=== PATIENT | male | born 1945 | race Caucasian/White ===

== ENCOUNTER 2019-07-07 00:30 | Emergency (ER) | payer MEDICARE, BC ==
[2019-07-07] MEDS ORDERED: Diltiazem 25 MG/5 ML SDV IVPUSH ONE (01:03)
--- NOTE | 2019-07-07 01:05 | EDM.PDOC ---
ED HPI GENERAL MEDICAL PROBLEM - General Chief Complaint: General Stated Complaint: SOB Time Seen by Provider: 07/07/19 00:30 Source of Information: Reports: Patient History Limitations: Reports: No Limitations - History of Present Illness INITIAL COMMENTS - FREE TEXT/NARRATIVE: Pt is 74 year old male with PMH of Afib presents to emergency room with c/o shortness of breath for few weeks now. Pt claims that he used to feel chest pressure with shortness of breath when he woke up in the morning. It would last for few hours and gradually improve over the day. But tonight, about 1 hr prior to arrival, he started to feel short of breath with midsternal chest pressure. Also felt weak and sweaty. So he got up and drove to the emergency room.Rates his pressure and discomfort at 6-7/10. No nausea or vomiting. No chest pain. Pt's SPO2 was 88% on arrival and was started on o2 at 2 litres and had to be increased to 4 litres to bring his SPO2 to 92%. Onset: Today Onset Date: 07/06/19 Onset Time: 23:00 Location: Reports: Chest Quality: Reports: Pressure, Same as Previous Episode Severity: Mild Improves with: Reports: None Worsens with: Reports: None Associated Symptoms: Reports: Shortness of Breath. Denies: Confusion, Chest Pain, Cough, Diaphoresis, Fever/Chills, Headaches, Nausea/Vomiting, Rash, Seizure Chest Pain Score (Numeric/FACES): 4 - Related Data Allergies Allergy/AdvReac Type Severity Reaction Status Date / Time bee venom protein (honey bee) Allergy Cannot Verified 07/07/19 00:53 Remember Home Meds: Home Meds Aspirin 81 mg PO DAILY 07/07/19 [History] Levothyroxine Sodium [Levo-T] 50 mcg PO DAILY 07/07/19 [History] Metoprolol Succinate [Toprol XL 100mg] 100 mg PO DAILY 07/07/19 [History] dilTIAZem HCl [Diltiazem ER] 180 mg PO DAILY 07/07/19 [History] ED ROS GENERAL - Review of Systems Review Of Systems: See Below Constitutional: Reports: Diaphoresis. Denies: Fever, Malaise, Weakness, Night Sweats HEENT: Denies: Rhinitis, Throat Pain Respiratory: Reports: Shortness of Breath. Denies: Wheezing, Pleuritic Chest Pain, Cough, Sputum Cardiovascular: Reports: Chest Pain. Denies: Lightheadedness Endocrine: Denies: Fatigue, Polydypsia GI/Abdominal: Denies: Abdominal Pain, Anorexia, Nausea, Vomiting : Denies: Dysuria, Frequency Musculoskeletal: Denies: Joint Pain, Joint Swelling Skin: Denies: Bruising, Pruritis, Rash Neurological: Denies: Confusion, Dizziness, Headache, Numbness, Tingling Psychiatric: Denies: Agitation, Anxiety, Confusion, Cravings, Depression ED EXAM, GENERAL - Physical Exam Exam: See Below Exam Limited By: No Limitations General Appearance: Alert, WD/WN, Other (slightly short of breath, cold and clamy with sweating) Eye Exam: Bilateral Eye: EOMI, PERRL Ears: Normal External Exam, Normal Canal, Hearing Grossly Normal, Normal TMs Ear Exam: Bilateral Ear: Auricle Normal, Canal Normal, TM normal Nose: Normal Inspection, Normal Mucosa, No Blood Throat/Mouth: Normal Inspection, Normal Lips, Normal Teeth, Normal Gums, Normal Oropharynx, Normal Voice, No Airway Compromise Head: Atraumatic, Normocephalic Neck: Normal Inspection, Supple, Non-Tender, Full Range of Motion Respiratory/Chest: Normal Breath Sounds, No Accessory Muscle Use, Chest Non- Tender, Crackles (coarse b/l basal crackles) Cardiovascular: Normal Peripheral Pulses, Regular Rate, Rhythm, No Edema, No Gallop, No JVD, No Murmur, No Rub GI/Abdominal: Normal Bowel Sounds, Soft, Non-Tender, No Organomegaly, No Distention, No Abnormal Bruit, No Mass Extremities: Normal Inspection, Normal Range of Motion, Non-Tender, Normal Capillary Refill Neurological: Alert, Oriented, CN II-XII Intact, Normal Cognition, Normal Gait, Normal Reflexes, No Motor/Sensory Deficits EKG INTERPRETATION EKG Date: 07/07/19 Rhythm: A-Fib [place]: Normal QRS: Normal ST-T: Normal QT: Normal EKG Interpretation Comments: Poor R wave progression in lead 1,2 and 3 Course - Vital Signs Text/Narrative:: Pt's EKG showed heart rate of 170s. His EKG shows Afib with RVR. He is probably in heart failure with his symptoms. It has progressively got worse over the past 2 wks.On clinical exam he does have coarse crackles in the base. Also there is pedal edema around the ankle. Pt did receive Cardizem 15mg IV stat, his heart rate did drop into 100-110s. Also he did receive lasix 20mg IV. His shortness of breath resolved and his Chest pressure was down to 4/10. Patient is feeling better. LAb work ordered. Chest x-ray does show pulmonary congestion. Pt's labs are back, His CBC appears normal. AMP is stable. His troponin is elevated at 0.258 and his BNP is 1352.It does appear like Afib with RVR with Non -STEMI. Pt was started on heparin bolus 4000 units and a drip of 1000 units per hour.Also aspirin 324mg orally. I did contact Dr. Del Valle, hospitalist senior microsoft consultant at [facility] and discuss patient with him. He did agree to accept patient for transfer to [facility]. Also I have started him on cardizem drip at 2.5mg per hour to keep his heart rate under 110/minute. Also his home meds list has been available and update on the chart. Pt is hemodynamically stable. He will be transferred to [facility] by ambulance. Pt is hemodynamically stable and chest pain free at the time of transfer. Further care per Dr. Del Valle. Last Recorded V/S: Last Vital Signs Temp Pulse 159 H 07/07/19 03:19 Resp 16 07/07/19 03:19 BP 121/94 H 07/07/19 03:19 Pulse Ox 95 07/07/19 03:19 - Orders/Labs/Meds Orders: Active Orders 24 hr Category Date Time Status EKG Documentation Completion [RC] ASDIRECTED Care 07/07/19 01:02 Active Chest 1V Frontal [CR] Stat Exams 07/07/19 01:00 Taken Diltiazem [Cardizem] 100 mg Med 07/07/19 02:30 Ordered Sodium Chloride 0.9% [Normal Saline] 100 ml IV TITRATE Heparin Sodium/D5W [Heparin 25,000 Units in D5W 500 ML] Med 07/07/19 02:45 Active 25,000 units in 500 ml IV TITRATE EKG 12 Lead [EK] Routine Ther 07/07/19 00:38 Ordered Medication Orders Diltiazem HCl 100 mg/ Sodium (Chloride) 100 mls @ 2.5 mls/hr IV TITRATE THONG; Protocol Last Admin: 07/07/19 03:13 Dose: 2.5 mg/hr, 2.5 mls/hr Heparin Sodium/Dextrose (Heparin 25,000 Units In D5w 500 Ml) 25,000 units in 500 mls @ 22.861 mls/hr IV TITRATE THONG; Protocol Last Admin: 07/07/19 02:51 Dose: 12 units/kg/hr, 22.861 mls/hr Labs: Laboratory Tests 07/07/19 07/07/19 07/07/19 Range/Units 01:00 01:00 01:00 WBC 4.2 (4.0-11.0) K/uL RBC 5.78 (4.50-6.50) M/uL Hgb 18.7 H* (13.0-18.0) g/dL Hct 53.7 (40.0-54.0) % MCV 93 (76-96) fL MCH 32.4 H (27.0-32.0) pg MCHC 34.8 (31.0-35.0) g/dL RDW 13.3 (11.0-16.0) % Plt Count 214 (150-400) K/uL MPV 10.5 H (6.0-10.0) fL Neut % (Auto) 67.2 (45.0-70.0) % Lymph % (Auto) 22.0 (20.0-40.0) % [place] % (Auto) 6.2 (3.0-10.0) % Eos % (Auto) 4.1 (1.0-5.0) % Baso % (Auto) 0.5 (0.0-0.5) % Neut # (Auto) 2.82 (2.00-7.50) K/uL Lymph # (Auto) 0.92 L (1.50-4.00) K/uL [place] # (Auto) 0.26 (0.20-0.80) K/uL Eos # (Auto) 0.17 (0.04-0.40) K/uL Baso # (Auto) 0.02 (0.02-0.10) K/uL PT 16.5 H (9.0-11.5) sec INR 1.7 (1.0-3.5) APTT 29.6 (24.4-33.2) SECONDS Sodium (136-145) mmol/L Potassium (3.5-5.1) mmol/L Chloride (98-107) mmol/L Carbon Dioxide (21.0-32.0) mmol/L Anion Gap (5.0-15.0) mmol/L BUN (8-26) mg/dL Creatinine (0.70-1.30) mg/dL Est Cr Clr Drug Dosing mL/min Estimated GFR (MDRD) (>60) MLS/MIN BUN/Creatinine Ratio (6-25) Glucose (74-100) mg/dL Calcium (8.5-10.1) mg/dL Total Bilirubin (0.0-1.0) mg/dL AST (15-37) U/L ALT (12-78) U/L Alkaline Phosphatase (46-116) U/L Troponin I (0.000-0.060) ng/mL B-Natriuretic Peptide 1352 H (0-125) pg/mL Total Protein (6.4-8.2) g/dL Albumin (3.4-5.0) g/dL Globulin (2.2-4.2) g/dL Albumin/Globulin Ratio (0.8-2.0) 07/07/19 Range/Units 01:00 WBC (4.0-11.0) K/uL RBC (4.50-6.50) M/uL Hgb (13.0-18.0) g/dL Hct (40.0-54.0) % MCV (76-96) fL MCH (27.0-32.0) pg MCHC (31.0-35.0) g/dL RDW (11.0-16.0) % Plt Count (150-400) K/uL MPV (6.0-10.0) fL Neut % (Auto) (45.0-70.0) % Lymph % (Auto) (20.0-40.0) % [place] % (Auto) (3.0-10.0) % Eos % (Auto) (1.0-5.0) % Baso % (Auto) (0.0-0.5) % Neut # (Auto) (2.00-7.50) K/uL Lymph # (Auto) (1.50-4.00) K/uL [place] # (Auto) (0.20-0.80) K/uL Eos # (Auto) (0.04-0.40) K/uL Baso # (Auto) (0.02-0.10) K/uL PT (9.0-11.5) sec INR (1.0-3.5) APTT (24.4-33.2) SECONDS Sodium 146 H (136-145) mmol/L Potassium 4.0 (3.5-5.1) mmol/L Chloride 107 (98-107) mmol/L Carbon Dioxide 24.4 (21.0-32.0) mmol/L Anion Gap 18.6 H (5.0-15.0) mmol/L BUN 31 H (8-26) mg/dL Creatinine 1.32 H (0.70-1.30) mg/dL Est Cr Clr Drug Dosing 53.08 mL/min Estimated GFR (MDRD) 53 L (>60) MLS/MIN BUN/Creatinine Ratio 23.5 (6-25) Glucose 156 H (74-100) mg/dL Calcium 9.9 (8.5-10.1) mg/dL Total Bilirubin 1.0 (0.0-1.0) mg/dL AST 48 H (15-37) U/L ALT 36 (12-78) U/L Alkaline Phosphatase 79 (46-116) U/L Troponin I 0.259 H* (0.000-0.060) ng/mL B-Natriuretic Peptide (0-125) pg/mL Total Protein 7.7 (6.4-8.2) g/dL Albumin 3.8 (3.4-5.0) g/dL Globulin 3.9 (2.2-4.2) g/dL Albumin/Globulin Ratio 1.0 (0.8-2.0) Meds: Medications Generic Name Dose Route Start Last Admin Trade Name Freq PRN Reason Stop Dose Admin Diltiazem HCl 100 mg/ Sodium 100 mls @ 2.5 mls/hr 07/07/19 02:30 07/07/19 03: 13 Chloride IV 2.5 mg/hr TITRATE THONG 2.5 mls/hr Administration Protocol 2.5 MG/HR Heparin Sodium/Dextrose 25,000 units in 500 mls @ 22.861 mls/hr 07/07/19 02: 45 07/07/19 02:51 Heparin 25,000 Units In D5w 500 Ml IV 12 units/kg/hr TITRATE THONG 22.861 mls/hr Administration Protocol 12 UNITS/KG/HR Discontinued Medications Generic Name Dose Route Start Last Admin Trade Name Freq PRN Reason Stop Dose Admin Aspirin 324 mg 07/07/19 02:17 07/07/19 02:25 Aspirin PO 07/07/19 02:18 324 mg ONETIME ONE Administration Diltiazem HCl 15 mg 07/07/19 01:03 07/07/19 00:57 Diltiazem IVPUSH 07/07/19 01:04 15 mg ONETIME ONE Administration Furosemide 20 mg 07/07/19 01:28 07/07/19 01:25 Lasix IVPUSH 07/07/19 01:29 20 mg ONETIME ONE Administration Heparin Sodium (Porcine) 4,000 units 07/07/19 02:18 07/07/19 02:49 Heparin Sodium IVPUSH 07/07/19 02:19 4,000 units ONETIME ONE Administration Departure - Departure Time of Disposition: 04:00 Disposition: DC/Tfer to Acute Hospital 02 Condition: Fair Clinical Impression: CHF, Congestive heart failure, Atrial fibrillation with RVR, Non-STEMI (non-ST elevated myocardial infarction) - Discharge Information *PRESCRIPTION DRUG MONITORING PROGRAM REVIEWED*: Not Applicable *COPY OF PRESCRIPTION DRUG MONITORING REPORT IN PATIENT ANAHI: Not Applicable Referrals: PCP,None [Primary Care Provider] - Forms: ED Department Discharge - Problem List & Annotations (1) CHF, Congestive heart failure SNOMED Code(s): 77213318 Code(s): I50.9 - HEART FAILURE, UNSPECIFIED Status: Acute Current Visit: No (2) Atrial fibrillation with RVR SNOMED Code(s): 010072419338995 Code(s): I48.91 - UNSPECIFIED ATRIAL FIBRILLATION Status: Acute Current Visit: Yes (3) Non-STEMI (non-ST elevated myocardial infarction) SNOMED Code(s): 82493815 Code(s): I21.4 - NON-ST ELEVATION (NSTEMI) MYOCARDIAL INFARCTION Status: Acute Current Visit: Yes - Problem List Review Problem List Initiated/Reviewed/Updated: Yes - My Orders Last 24 Hours: My Active Orders 07/07/19 00:38 EKG 12 Lead [EK] Routine 07/07/19 01:00 Chest 1V Frontal [CR] Stat 07/07/19 01:02 EKG Documentation Completion [RC] ASDIRECTED 07/07/19 02:30 Diltiazem [Cardizem] 100 mg Sodium Chloride 0.9% [Normal Saline] 100 ml IV TITRATE 07/07/19 02:45 Heparin Sodium/D5W [Heparin 25,000 Units in D5W 500 ML] 25,000 units in 500 ml IV TITRATE - Assessment/Plan Last 24 Hours: My Active Orders 07/07/19 00:38 EKG 12 Lead [EK] Routine 07/07/19 01:00 Chest 1V Frontal [CR] Stat 07/07/19 01:02 EKG Documentation Completion [RC] ASDIRECTED 07/07/19 02:30 Diltiazem [Cardizem] 100 mg Sodium Chloride 0.9% [Normal Saline] 100 ml IV TITRATE 07/07/19 02:45 Heparin Sodium/D5W [Heparin 25,000 Units in D5W 500 ML] 25,000 units in 500 ml IV TITRATE Assessment:: Afib with RVR Non stemi Plan: t's EKG showed heart rate of 170s. His EKG shows Afib with RVR. He is probably in heart failure with his symptoms. It has progressively got worse over the past 2 wks.On clinical exam he does have coarse crackles in the base. Also there is pedal edema around the ankle. Pt did receive Cardizem 15mg IV stat, his heart rate did drop into 100-110s. Also he did receive lasix 20mg IV. His shortness of breath resolved and his Chest pressure was down to 4/10. Patient is feeling better. LAb work ordered. Chest x-ray does show pulmonary congestion. Pt's labs are back, His CBC appears normal. AMP is stable. His troponin is elevated at 0.258 and his BNP is 1352.It does appear like Afib with RVR with Non -STEMI. Pt was started on heparin bolus 4000 units and a drip of 1000 units per hour.Also aspirin 324mg orally. I did contact Dr. Del Valle, hospitalist senior micro[employer] consultant at [facility] and discuss patient with him. He did agree to accept patient for transfer to [facility]. Also I have started him on cardizem drip at 2.5mg per hour to keep his heart rate under 110/minute. Also his home meds list has been available and update on the chart. Pt is hemodynamically stable. He will be transferred to [facility] by ambulance. [facility] the [facility] with [facility]S was tried , also [facility] was called,apparently they are not available for transfer. Hence, [facility] was called, they did agree for the patient transfer. Patient will be transferred by [facility] to [facility].Pt is hemodynamically stable and chest pain free at the time of transfer. Further care per Dr. Del Valle.
[2019-07-07] MEDS ORDERED: Furosemide 20 MG/2 ML VIAL IVPUSH ONE (01:28)
[2019-07-07] MEDS ORDERED: Aspirin 81 MG Tab.Chew PO ONE (02:17)
[2019-07-07] MEDS ORDERED: Heparin Sodium 5,000 UNITS/0.5 ML Syringe IVPUSH ONE (02:18)
[2019-07-07] MEDS ORDERED: Diltiazem 100 MG in Sodium Chloride 0.9% 100 ML IV SCH (02:30)
[2019-07-07] MEDS ORDERED: Heparin Sodium/D5W 25,000 UNITS/500 ML BAG IV SCH (02:45)
[2019-07-07 03:48] VITALS: BP 135/92; PULSE 148
--- NOTE | 2019-07-07 16:06 | CR ---
CLINICAL DATA: Shortness of breath. AP CHEST, 2018: No priors. The patient has taken a poor inspiration. The heart size is normal. The aorta is ectatic. There is mild increased density in both lung bases, consistent with basilar atelectasis or infiltrate. Pneumonia should be considered. No pneumothorax. No pleural effusions. Job: [id number] MTDD
== END 2019-07-07 04:40 ==
LOC: LB.ED 00:30 → MERGE 00:30 → LB.ED 04:40
DX: I21.4 Non-ST elevation (NSTEMI) myocardial infarction (principal); I48.91 Unspecified atrial fibrillation; I50.9 Heart failure, unspecified; Z91.030 Bee allergy status; Z79.82 Long term (current) use of aspirin; Z79.899 Other long term (current) drug therapy
CPT/HCPCS: 36415; 71045; 80053; 83880; 84484; 85025; 85610; 85730; 93005; 96365; 96366; 96375; 96376; 99285; 99285-25; A9270-GY; J1644; J1644-GY; J1940; J3490; J7030

== ENCOUNTER → 2019-10-05 | Outpatient (CLI) | payer MEDICARE, BC | LOC: LB.COAG 09:15 | PROVIDERS: ATTEND Family Medicine | DX: I48.91 Unspecified atrial fibrillation (principal) | CPT/HCPCS: 85610 ==

== ENCOUNTER 2019-10-07 09:35 | Emergency (ER) | payer MEDICARE, BC ==
--- NOTE | 2019-10-07 09:50 | EDM.PDOC ---
ED HPI GENERAL MEDICAL PROBLEM - General Chief Complaint: General Stated Complaint: BLOODY NOSE Time Seen by Provider: 10/07/19 09:35 Source of Information: Reports: Patient History Limitations: Reports: No Limitations - History of Present Illness INITIAL COMMENTS - FREE TEXT/NARRATIVE: This patient presents to the ED for evaluation of a nose bleed. He states the bleeding began about 45 minutes ago and was initially one nostril then from both. He denies other concerns or complaints. Onset: Today, Sudden Improves with: Reports: None - Related Data Allergies Allergy/AdvReac Type Severity Reaction Status Date / Time bee venom protein (honey bee) Allergy Cannot Verified 07/07/19 00:53 Remember Home Meds: Home Meds Levothyroxine Sodium [Synthroid] 50 mcg PO DAILY 11/30/13 [History] Metoprolol Succinate [Toprol XL] 100 mg PO DAILY 11/30/13 [History] Warfarin [Coumadin] 5 mg PO DAILY 11/30/13 [History] dilTIAZem HCl [Diltiazem 24Hr ER (Cd)] 180 mg PO DAILY 11/30/13 [History] Aspirin 81 mg PO DAILY 07/07/19 [History] Levothyroxine Sodium [Levo-T] 50 mcg PO DAILY 07/07/19 [History] Metoprolol Succinate [Toprol XL 100mg] 100 mg PO DAILY 07/07/19 [History] Warfarin Sodium 5 mg PO ASDIRECTED 07/07/19 [History] dilTIAZem HCl [Diltiazem ER] 180 mg PO DAILY 07/07/19 [History] Past Medical History HEENT History: Reports: Hard of Hearing, Impaired Vision Cardiovascular History: Reports: Arrhythmia, Heart Failure, Hypertension, Other (See Below) Other Cardiovascular History: Hx AFib Hematologic History: Reports: Anticoagulation Therapy - Infectious Disease History Infectious Disease History: Reports: Chicken Pox, Measles, Mumps Social & Family History - Family History Family Medical History: Noncontributory - Caffeine Use Caffeine Use: Reports: Coffee ED ROS GENERAL - Review of Systems Review Of Systems: See Below Constitutional: Reports: No Symptoms HEENT: Reports: Nosebleed Respiratory: Reports: No Symptoms Cardiovascular: Reports: No Symptoms GI/Abdominal: Reports: No Symptoms Musculoskeletal: Reports: No Symptoms Skin: Reports: No Symptoms Neurological: Reports: No Symptoms ED EXAM, GENERAL - Physical Exam Exam: See Below Exam Limited By: No Limitations General Appearance: Alert, WD/WN, No Apparent Distress Eye Exam: Bilateral Eye: PERRL Ears: Normal External Exam Throat/Mouth: Other (significant bleeding both nares) Respiratory/Chest: No Respiratory Distress, No Accessory Muscle Use Extremities: Normal Inspection Neurological: Alert, Oriented Skin Exam: Warm, Dry Course - Re-Assessments/Exams Free Text/Narrative Re-Assessment/Exam: 10/07/19 09:44 This patient presents for evaluation of epistaxis. The bleeding was controlled with placement of bilateral rhino rockets therefore supportive outpatient management is indicated. The risks and benefits of packing were discussed with patient verbally and they consented to packing. See above procedure note. There was no bleeding after the nasal pack was placed. Given the patient's use of anticoagulants, the tampons will be left in place. Close follow-up with primary care tomorrow is indicated for removal of tampons; see discharge instructions. 10/07/19 09:57 Departure - Departure Time of Disposition: 10:00 Disposition: Home, Self-Care 01 Condition: Good Clinical Impression: Epistaxis not due to trauma - Discharge Information
== END 2019-10-07 10:15 | disposition home or self-care (01) ==
LOC: LB.ED 09:35
DX: R04.0 Epistaxis (principal); I11.0 Hypertensive heart disease with heart failure; I50.9 Heart failure, unspecified; I48.91 Unspecified atrial fibrillation; Z79.01 Long term (current) use of anticoagulants; Z79.899 Other long term (current) drug therapy; Z79.82 Long term (current) use of aspirin; Z91.030 Bee allergy status
CPT/HCPCS: 30901; 30903; 99282; 99283-25

== ENCOUNTER 2021-09-28 06:32 | Emergency (ER) | payer MEDICARE, BC ==
[2021-09-28] MEDS: Ondansetron 4 MG/2 ML SDV ONE (07:16)
[2021-09-28] MEDS: Sodium Chloride 0.9% 500 ML IV ONE (07:18)
--- NOTE | 2021-09-28 08:34 | EDM.PDOC ---
ED HPI GENERAL MEDICAL PROBLEM - General Chief Complaint: ENT Problem Stated Complaint: nose bleed Time Seen by Provider: 09/28/21 07:00 - History of Present Illness INITIAL COMMENTS - FREE TEXT/NARRATIVE: Pt comes in by EMS with C/O a bloody nose most of the nite. He is on Coumadin for A-Fib and has had issues with epistaxis before, usually in the winter. He has an upset stomach from swallowing blood. He says the Rt nare is bleeding, but if he holds pressure on it blood will come out the left nare. - Related Data Allergies Allergy/AdvReac Type Severity Reaction Status Date / Time bee venom protein (honey bee) Allergy Cannot Verified 09/28/21 06:48 Remember Home Meds: Home Meds Warfarin [Coumadin] 5 mg PO DAILY 11/30/13 [History] dilTIAZem HCl [Diltiazem 24Hr ER (Cd)] 180 mg PO DAILY 11/30/13 [History] Levothyroxine Sodium [Levo-T] 50 mcg PO DAILY 07/07/19 [History] Metoprolol Succinate [Toprol XL 100mg] 100 mg PO DAILY 07/07/19 [History] Past Medical History HEENT History: Reports: Hard of Hearing, Impaired Vision Cardiovascular History: Reports: Arrhythmia, Heart Failure, Hypertension, [place], Stents, Other (See Below) Other Cardiovascular History: Hx AFib Hematologic History: Reports: Anticoagulation Therapy - Infectious Disease History Infectious Disease History: Reports: Chicken Pox, Measles, Mumps Social & Family History - Family History Family Medical History: No Pertinent Family History - Caffeine Use Caffeine Use: Reports: Coffee - Recreational Drug Use Recreational Drug Use: No ED ROS ENT - Review of Systems Review Of Systems: Comprehensive ROS is negative, except as noted in HPI. HEENT: Reports: Nosebleed GI/Abdominal: Reports: Nausea ED EXAM, ENT - Physical Exam Exam: See Below General Appearance: Other (He has dried blood around the Rt nare and around his mouth.) Nose: Other (examining the Rt nare reveals a small abrasion on the medial side distally. No active bleeding. Left nare has a small amount of dried blood, but no active bleeding.) ED ENT PROCEDURES - Epistaxis Procedure Recent anticoagulants/antiplatlets: Yes Uncontrolled HTN: No Recent septal/nasal surgery: No Site of bleeding: Right Nare Clearing of clots: Other (There were no clots in the nose today.) Ice pack to area: No Anterior Packing: Petrolatum Guaze Strip Complications: No Course - Vital Signs Last Recorded V/S: Last Vital Signs Temp Pulse 115 H 09/28/21 08:32 Resp 16 09/28/21 08:32 BP 116/95 H 09/28/21 08:32 Pulse Ox 97 09/28/21 08:32 - Orders/Labs/Meds Labs: Laboratory Tests 09/28/21 09/28/21 09/28/21 Range/Units 07:10 07:10 07:10 WBC 8.0 D (4.0-11.0) K/uL RBC 4.24 L (4.50-6.50) M/uL Hgb 13.8 (13.0-18.0) g/dL Hct 42.0 (40.0-54.0) % MCV 99 H (76-96) fL MCH 32.5 H (27.0-32.0) pg MCHC 32.9 (31.0-35.0) g/dL RDW 12.7 (11.0-16.0) % Plt Count 241 D (150-400) K/uL MPV 10.2 H (6.0-10.0) fL Neut % (Auto) 76.6 H (45.0-70.0) % Lymph % (Auto) 16.1 L (20.0-40.0) % [place] % (Auto) 6.4 (3.0-10.0) % Eos % (Auto) 0.4 L (1.0-5.0) % Baso % (Auto) 0.5 (0.0-0.5) % Neut # (Auto) 6.12 (2.00-7.50) K/uL Lymph # (Auto) 1.29 L (1.50-4.00) K/uL [place] # (Auto) 0.51 (0.20-0.80) K/uL Eos # (Auto) 0.03 L (0.04-0.40) K/uL Baso # (Auto) 0.04 (0.02-0.10) K/uL PT 28.8 H D (9.0-11.5) sec INR 3.0 D (1.0-3.5) Sodium 143 (136-145) mmol/L Potassium 5.6 H D (3.5-5.1) mmol/L Chloride 112 H (98-107) mmol/L Carbon Dioxide 24.0 (21.0-32.0) mmol/L Anion Gap 12.6 (5.0-15.0) mmol/L BUN 44 H D (8-26) mg/dL Creatinine 1.56 H D (0.70-1.30) mg/dL Est Cr Clr Drug Dosing 40.91 mL/min Estimated GFR (MDRD) 44 L (>60) MLS/MIN BUN/Creatinine Ratio 28.2 H (6-25) Glucose 205 H D (74-100) mg/dL Calcium 8.7 (8.5-10.1) mg/dL Total Bilirubin 0.8 D (0.0-1.0) mg/dL AST 23 (15-37) U/L ALT 26 (12-78) U/L Alkaline Phosphatase 69 (46-116) U/L Total Protein 6.4 (6.4-8.2) g/dL Albumin 3.3 L (3.4-5.0) g/dL Globulin 3.1 (2.2-4.2) g/dL Albumin/Globulin Ratio 1.1 (0.8-2.0) Meds: Medications Discontinued Medications Generic Name Dose Route Start Last Admin Trade Name Freq PRN Reason Stop Dose Admin Sodium Chloride 500 mls @ 500 mls/hr 09/28/21 07:12 09/28/21 07:18 Normal Saline IV 09/28/21 08:11 500 mls/hr .BOLUS ONE Administration Ondansetron HCl Confirm 09/28/21 07:11 09/28/21 07:16 Ondansetron 4 Mg/2 Ml Sdv Administered 09/28/21 07:12 4 mg Dose Administration 4 mg .ROUTE .STK-MED ONE - Re-Assessments/Exams Free Text/Narrative Re-Assessment/Exam: 09/28/21 08:38 Labs show he is dehydrated. Hgb is 13.8 - K is 5.6 - INR 3.0 He was given 1 liter of N.S. Zofran 4 mg IV. He did have an episode of vasovagal where he got clammy and cold. A warm blanket seemed to resolve it. 09/28/21 08:39 Departure - Departure Time of Disposition: 08:55 Disposition: Home, Self-Care 01 Condition: Good Clinical Impression: Epistaxis - Discharge Information *PRESCRIPTION DRUG MONITORING PROGRAM REVIEWED*: Yes *COPY OF PRESCRIPTION DRUG MONITORING REPORT IN PATIENT ANAHI: Yes Instructions: Nosebleed, Adult, [id number] Referrals: PCP,None [Primary Care Provider] - Forms: ED Department Discharge Additional Instructions: He will be discharged with the nasal packing in place. He is to keep it in for 2 days. He will hold his meds today, and hold Coumadin for 2 days. He is to increase the humidity in his home. Use nasal saline and vaseline into each nare daily. He is to follow up in 2 days for packing removal. I think he will need to have his Coumadin level reduced slightly And focus on an INR in the lower range of nml. Care Plan Goals: Follow up with at the clinic at 2:20 pm on TueSep 30 for nasal packing removal and lab recheck Sepsis Event Note (ED) - Evaluation Sepsis Screening Result: No Definite Risk - Focused Exam Vital Signs: Vital Signs Pulse Resp BP Pulse Ox 09/28/21 08:32 115 H 16 116/95 H 97 09/28/21 08:15 115 H 16 82/65 L 97 09/28/21 08:11 89 16 86/57 L 97 09/28/21 08:01 112 H 16 92/55 L 94 L 09/28/21 07:42 100 17 83/58 L 94 L 09/28/21 07:25 90 13 65/45 L 95 09/28/21 06:35 73 16 105/73 96
== END 2021-09-28 08:56 | disposition home or self-care (01) ==
LOC: LB.ED 06:32
DX: R04.0 Epistaxis (principal); Z91.030 Bee allergy status; Z79.01 Long term (current) use of anticoagulants; Z79.899 Other long term (current) drug therapy
CPT/HCPCS: 30901; 36415; 80053; 85025; 85610; 99283; J2405; J7040

== ENCOUNTER 2022-09-27 17:21 | Emergency (ER) | payer MEDICARE, BC ==
[2022-09-27] MEDS ORDERED: Bacitracin Oint 1 GM U/D Packet TOP ONE (18:19)
[2022-09-27] MEDS ORDERED: Lidocaine 1% with EPINEPHrine 1:100,000 20 ML MDV INJECT ONE (18:20)
== END 2022-09-27 18:25 | disposition home or self-care (01) ==
LOC: LB.ED 17:21
DX: L76.22 Postprocedural hemorrhage of skin and subcutaneous tissue following other procedure (principal); I11.0 Hypertensive heart disease with heart failure; I50.9 Heart failure, unspecified; I10 Essential (primary) hypertension; I25.2 Old myocardial infarction; Z79.01 Long term (current) use of anticoagulants; Z91.030 Bee allergy status; Z79.82 Long term (current) use of aspirin; Z79.899 Other long term (current) drug therapy
CPT/HCPCS: 12001; 99282

== ENCOUNTER 2022-12-06 00:30 | Emergency (ER) | payer MEDICARE, BC ==
[2022-12-06] MEDS ORDERED: Sodium Chloride 0.9% 500 ML IV ONE (00:56)
[2022-12-06] MEDS ORDERED: Nitroglycerin 0.4 MG Tab.SL SL ONE (00:57)
[2022-12-06] MEDS ORDERED: Aspirin 81 MG Tab.Chew PO ONE (00:58)
[2022-12-06 01:27] LABS: ESTIMATED GFR 72 mL/min (>60)
[2022-12-06 01:34] LABS: TROPONIN I HIGH SENSITIVITY 14.1 pg/ml (<=60.4)
[2022-12-06] MEDS ORDERED: Sodium Chloride 0.9% 500 ML IV SCH (01:45)
== END 2022-12-06 05:40 | disposition home or self-care (01) ==
LOC: SUPCPDRO 00:30 → LB.ED 00:30
DX: I48.20 Chronic atrial fibrillation, unspecified (principal); I11.0 Hypertensive heart disease with heart failure; I50.9 Heart failure, unspecified; I25.2 Old myocardial infarction; Z91.030 Bee allergy status; Z79.899 Other long term (current) drug therapy; Z79.01 Long term (current) use of anticoagulants; Z79.82 Long term (current) use of aspirin; Z87.891 Personal history of nicotine dependence
CPT/HCPCS: 36415; 71045; 80053; 83880; 84484; 85025; 85610; 93005; 96360; 96361; 99284-25; A9270-GY; J7030; J7040